=== PATIENT | male | born 1960 | race Caucasian/White ===

== ENCOUNTER → 2017-11-01 12:01 | Outpatient (CLI) | payer OTHER, SELFPAY ==
--- NOTE | 2017-11-01 | DI.RAD.S_ITS ---
PROCEDURE: XR HAND LT MIN 3V INDICATIONS: 57 year-old male with left hand and wrist injury. TECHNIQUE: 3 views of the hand(s) acquired. COMPARISON: [facility], CR, XR WRIST LT MIN 3V, 11/01/2017, 12:09. FINDINGS: Bones: No fractures or dislocations. Carpal bones are normally aligned. No suspicious bony lesions. Soft tissues: No suspicious soft tissue calcifications. IMPRESSION: No acute bony injuries of the left hand. Dictated by: Giovanny Payne M.D. on 11/01/2017 at 13:23 Approved by: Giovanny Payne M.D. on 11/01/2017 at 13:24
--- NOTE | 2017-11-01 | DI.RAD.S_ITS ---
PROCEDURE: XR WRIST LT MIN 3V INDICATIONS: 57 year-old male with left hand and wrist injury. TECHNIQUE: 4 views of the wrist were acquired. COMPARISON: None. FINDINGS: Bones: No fractures or dislocations. No suspicious bony lesions. Scaphoid view: Scaphoid appears intact. Soft tissues: No suspicious soft tissue calcifications. IMPRESSION: No acute bony injuries of the left wrist. Dictated by: Giovanny Payne M.D. on 11/01/2017 at 13:22 Approved by: Giovanny Payne M.D. on 11/01/2017 at 13:23
== END ==
PROVIDERS: Visit Provider Family Medicine
DX: S69.92XA Unspecified injury of left wrist, hand and finger(s), initial encounter (principal)
CPT/HCPCS: 73110; 73130; 73630

== ENCOUNTER → 2020-06-06 10:58 | Outpatient (ROUT) | payer OTHER, SELFPAY ==
[2020-06-06 11:54] LABS: COVID19 -Nasal RAPID Negative (Negative)
== END ==
PROVIDERS: Visit Provider Family Medicine
DX: Z20.822 Contact with and (suspected) exposure to COVID-19 (principal)
CPT/HCPCS: 87635

== ENCOUNTER 2021-05-22 15:31 | Emergency (ER) | payer OTHER, SELFPAY ==
[2021-05-22] VITALS (17 sets, daily range): BP systolic 127–149; BP diastolic 75–91; PULSE 74–88; RESP 13–23; TEMP 37.1; O2SAT 93–98; BMI 33.4
--- NOTE | 2021-05-22 15:53 | DI.RAD.S_ITS ---
PROCEDURE: XR CHEST 1V INDICATIONS: chest pain TECHNIQUE: One view of the chest was acquired. COMPARISON: [facility], , CHEST 1 VIEW, 11/02/2013, 7:30. FINDINGS: Surgical changes and devices: None. Lungs and pleura: Lungs are clear. No pleural effusions or pneumothorax. Mediastinum: Mediastinal contours appear normal. Heart size is normal. Bones and chest wall: No suspicious bony lesions. Overlying soft tissues appear unremarkable. IMPRESSION: No acute cardiopulmonary abnormality. Dictated by: Wayne Patiño M.D. on 05/22/2021 at 16:24 Approved by: Wayne Patiño M.D. on 05/22/2021 at 16:24
[2021-05-22 16:05] LABS: Add Manual Diff / Slide Review NO; Basophils Absolute Auto 100 /uL (0-100); Basophils Percent Auto 0.7 % (0-2); Eosinophils Absolute Auto 200 /uL (0-450); Eosinophils Percent Auto 1.6 % (2-4); Hemoglobin 15.2 g/dL (13.5-17.5); Lymphocytes Absolute Auto 1900 /uL (1100-4500); Lymphocytes Percent Auto 19.9 % (25-40); Mean Corpuscular HGB Conc 35.5 % (30-36); Mean Corpuscular Hemoglobin 32.9 PG (26-34); Mean Corpuscular Volume 92.8 fL (80-100); Monocytes Absolute Auto 700 /uL (0-900); Monocytes Percent Auto 7.2 % (3-14); Neutrophils Absolute Auto 6700 /uL (1500-7000); Neutrophils Percent Auto 70.6 % (50-75); Platelet Count 291 X10^3/uL (150-400); Red Blood Cell Count 4.63 X10^6/uL (4.5-5.9); Red Cell Distribution Width 12.4 % (11.6-14.8); White Blood Cell Count 9.5 X10^3/uL (4.5-11.0)
[2021-05-22 16:07] LABS: Prothrombin Time 11.5 SECONDS (10.1-12.7)
[2021-05-22 16:10] LABS: PTT Partial Thromboplastin Tim 41 SECONDS (26.4-36.2)
[2021-05-22 16:16] LABS: Alanine Aminotransferase 24 IU/L (<50); Albumin 4.8 g/dL (3.5-5.0); Albumin Globulin Ratio 1.5 (1.0-2.8); Alkaline Phosphatase 89 U/L (38-126); Aspartate Aminotransferase 28 IU/L (17-59); Bilirubin Total 0.4 mg/dL (0.2-1.3); Blood Urea Nitrogen 20 mg/dL (9-20); Calcium 9.9 mg/dL (8.4-10.2); Carbon Dioxide 25 mmol/L (22-32); Chloride 107 mmol/L (98-107); Creatine Kinase 258 U/L (55-170); Estimated Glomerular Filt Rate > 60.0 mL/min (>60); Globulin 3.3 g/dL (1.7-4.1); Glucose 104 mg/dL (80-110); HEMOLYSIS < 15 (0-50); Lipase 114 U/L (23-300); Potassium 4.6 mmol/L (3.4-5.1); Sodium 140 mmol/L (137-145); Total Protein 8.1 g/dL (6.3-8.2)
--- NOTE | 2021-05-22 16:17 | ED.CHESTPAIN ---
HPI - Chest Pain General Chief Complaint: Chest Pain Stated Complaint: CHEST PAIN Time Seen by Provider: 05/22/21 16:15 Source: patient Mode of arrival: Ambulatory Limitations: no limitations Limitations: no limitations History of Present Illness HPI narrative: This is a 60-year-old male comes in with complaint of chest pressure with exertion. Patient states if he goes up steps or exerts himself he gets central chest pressure. He does not get shortness of breath, no syncope or lightheadedness. No nausea or vomiting. He does sometimes get diaphoretic with these episodes. Just been going on for the last for 5 days. He was not having any symptoms before. If he is resting or sitting he does not get symptoms he had stents for a STEMI in 2013 and had not been having similar symptoms since then. He takes a full-dose aspirin daily and typically more for back pain. He has a history of hypertension, dyslipidemia is on simvastatin, metoprolol and lisinopril. No tobacco, he drinks 4-5 alcoholic drinks daily. No illicit. His primary care is through [facility] and is Dr. Benoit. He does not follow with cardiology regularly. Related Data Allergies Allergy/AdvReac Type Severity Reaction Status Date / Time Penicillins Allergy Verified 05/22/21 15:53 Review of Systems Review of Systems ROS Unobtainable: All systems reviewed & are unremarkable except as noted in HPI and below Patient History Social History Smoking Status: Never smoker Smoking Status: Never smoker alcohol intake frequency: 3 or more drinks per day Substance Use Type: does not use Exam Narrative Exam Narrative: GENERAL: Alert and oriented x three, male is in mild distress. HEENT: Head normocephalic, atraumatic, EOMI, pupils reactive, face symmetric, moist mucous membranes NECK: Supple, full range of motion CARDIOVASCULAR: Regular rate and rhythm without murmurs, rubs or gallops. RESPIRATORY: Breath sounds equal bilaterally, no wheezes rales or rhonchi. ABDOMEN: Soft, nontender. Normoactive bowel sounds all 4 quadrants. No guarding or rebound, rigidity, no mass : No CVA tenderness EXTREMITIES: Normal range of motion, no edema. Neurovascularly intact NEUROLOGICAL: Cranial nerves II through XII grossly intact. Moving all extremities SKIN: Warm, dry, no petechiae, no rashes or lesions. Initial Vital Signs Initial Vital Signs: Vital Signs Pulse Rate 86 05/22/21 15:44 Respiratory Rate 16 05/22/21 15:44 Blood Pressure 142/90 H 05/22/21 15:44 Pulse Oximetry 97 05/22/21 15:44 Scores HEART Score Heart Score history: Highly Suspicious Heart Score EKG: Non-Specific repolarization disturbance Heart Score Age: 45-64 years old Heart Score risk factors: > 3 risk factors or hx of atherosclerotic disease Heart Score troponin: < or = to normal limit Heart Score Total: 6 Course Orders Ordered: ED Orders 05/22/21 15:43 EKG-12 Lead Stat 05/22/21 15:45 BNP [NT-proBNP (BNP-Adult 18+)] Stat Complete Blood Count AUTO DIFF Stat Comprehensive Metabolic Panel Stat Lipase Stat Magnesium Stat Partial Thromboplastin Time Stat Prothrombin Time INR Stat Troponin & CK Cardiac Panel Stat 05/22/21 15:53 XR chest 1V Stat 05/22/21 16:31 COVID19 - ADMIT ([employer]ATION [employer] swab/PCR) Stat 05/22/21 18:05 Trop I [Troponin I] Stat Reevaluation(s) Reevaluation #1: Patient is covid positive. Patient was updated. He continues to be asymptomatic with no chest pain. Reevaluation #2: Discussed cardiology's recommendations and that I would like patient to stay overnight for serial troponins and echo in the morning. Patient is aware that I am concerned that this is cardiac in nature and that his COVID infection is not the source of his exertional chest pain. Patient acknowledges risks versus benefits but would like to return home. We discussed Against Medical Advice but patient can return at any time. Patient is going to try to get a pulse oximeter. He is also going to try to contact his primary care to have an echo as an outpatient although this may be difficult secondary to his current infection. Consultations Consultation #1: Dr. Crouch, we discussed that patient is COVID positive today but his symptoms have really 0 been that of exertional chest pain and seem quite symptomatic of potential cardiac causes. He recommends serial enzymes, echo and if there are no changes discharge home but to increase his metoprolol. He would not stress test the patient with his positive COVID infection. If patient had enzyme changes or changes on his echo recommends recontact to cardiology. Vital Signs Vital signs: Vital Signs - 8 hr 12/20/21 15:44 05/22/21 15:45 05/22/21 15:53 Temperature 98.7 F Pulse Rate 86 85 83 Respiratory Rate 16 22 14 Blood Pressure 142/90 H 142/90 H Pulse Oximetry 97 98 97 05/22/21 16:00 05/22/21 16:15 05/22/21 16:30 Temperature Pulse Rate 82 78 80 Respiratory Rate 18 17 19 Blood Pressure 140/82 142/85 H Pulse Oximetry 98 97 98 05/22/21 16:45 05/22/21 17:00 05/22/21 17:15 Temperature Pulse Rate 86 77 88 Respiratory Rate 20 20 23 Blood Pressure 141/87 H Pulse Oximetry 98 98 98 05/22/21 17:30 05/22/21 17:45 05/22/21 18:00 Temperature Pulse Rate 78 75 76 Respiratory Rate 14 18 14 Blood Pressure 149/91 H 137/87 Pulse Oximetry 97 97 95 05/22/21 18:15 05/22/21 18:30 05/22/21 18:45 Temperature Pulse Rate 77 74 75 Respiratory Rate 19 15 13 Blood Pressure 127/77 Pulse Oximetry 96 96 98 05/22/21 19:00 05/22/21 19:15 Temperature Pulse Rate 74 78 Respiratory Rate 15 17 Blood Pressure 138/75 Pulse Oximetry 93 96 MDM - Chest Pain Lab Data Result diagrams: 05/22/21 15:45 05/22/21 15:45 Labs: Lab Results 05/22/21 05/22/21 05/22/21 Range/Units 15:45 15:45 15:45 WBC 9.5 (4.5-11.0) X10^3/uL RBC 4.63 (4.5-5.9) X10^6/uL Hgb 15.2 (13.5-17.5) g/dL Hct 43.0 (41-53) % MCV 92.8 (80-100) fL MCH 32.9 (26-34) PG MCHC 35.5 (30-36) % RDW 12.4 (11.6-14.8) % Plt Count 291 (150-400) X10^3/uL Neut % (Auto) 70.6 (50-75) % Lymph % (Auto) 19.9 L (25-40) % [facility] % (Auto) 7.2 (3-14) % Eos % (Auto) 1.6 L (2-4) % Baso % (Auto) 0.7 (0-2) % Neut # (Auto) 6700 (0759-6844) /uL Lymph # (Auto) 1900 (3465-1948) /uL [facility] # (Auto) 700 (0-900) /uL Eos # (Auto) 200 (0-450) /uL Baso # (Auto) 100 (0-100) /uL PT 11.5 (10.1-12.7) SECONDS INR 1.0 (0.9-1.3) APTT 41 H (26.4-36.2) SECONDS Sodium 140 (137-145) mmol/L Potassium 4.6 (3.4-5.1) mmol/L Chloride 107 (98-107) mmol/L Carbon Dioxide 25 (22-32) mmol/L BUN 20 (9-20) mg/dL Creatinine 1.00 (0.66-1.25) mg/dL Estimated GFR > 60.0 (>60) mL/min BUN/Creatinine Ratio 20.0 (6-22) Glucose 104 (80-110) mg/dL Calcium 9.9 (8.4-10.2) mg/dL Magnesium 2.0 (1.6-2.3) mg/dL Total Bilirubin 0.4 (0.2-1.3) mg/dL AST 28 (17-59) IU/L ALT 24 (<50) IU/L Alkaline Phosphatase 89 (38-126) U/L Total Creatine Kinase 258 H (55-170) U/L CK-MB (CK-2) 4.53 H (<2.37) ng/mL CK-MB (CK-2) Rel Index 1.8 (1.5-5.0) % Troponin I < 0.012 (0.01-0.034) ng/mL NT-Pro-B Natriuret Pep (<125) pg/mL Total Protein 8.1 (6.3-8.2) g/dL Albumin 4.8 (3.5-5.0) g/dL Globulin 3.3 (1.7-4.1) g/dL Albumin/Globulin Ratio 1.5 (1.0-2.8) Lipase 114 (23-300) U/L SARS-CoV-2 (PCR) (Negative) 05/22/21 05/22/21 05/22/21 Range/Units 15:45 16:31 18:05 WBC (4.5-11.0) X10^3/uL RBC (4.5-5.9) X10^6/uL Hgb (13.5-17.5) g/dL Hct (41-53) % MCV (80-100) fL MCH (26-34) PG MCHC (30-36) % RDW (11.6-14.8) % Plt Count (150-400) X10^3/uL Neut % (Auto) (50-75) % Lymph % (Auto) (25-40) % [facility] % (Auto) (3-14) % Eos % (Auto) (2-4) % Baso % (Auto) (0-2) % Neut # (Auto) (2887-9930) /uL Lymph # (Auto) (9459-8182) /uL [facility] [place] # (Auto) (0-900) /uL Eos # (Auto) (0-450) /uL Baso # (Auto) (0-100) /uL PT (10.1-12.7) SECONDS INR (0.9-1.3) APTT (26.4-36.2) SECONDS Sodium (137-145) mmol/L Potassium (3.4-5.1) mmol/L Chloride (98-107) mmol/L Carbon Dioxide (22-32) mmol/L BUN (9-20) mg/dL Creatinine (0.66-1.25) mg/dL Estimated GFR (>60) mL/min BUN/Creatinine Ratio (6-22) Glucose (80-110) mg/dL Calcium (8.4-10.2) mg/dL Magnesium (1.6-2.3) mg/dL Total Bilirubin (0.2-1.3) mg/dL AST (17-59) IU/L ALT (<50) IU/L Alkaline Phosphatase (38-126) U/L Total Creatine Kinase (55-170) U/L CK-MB (CK-2) (<2.37) ng/mL CK-MB (CK-2) Rel Index (1.5-5.0) % Troponin I < 0.012 (0.01-0.034) ng/mL NT-Pro-B Natriuret Pep 146 H (<125) pg/mL Total Protein (6.3-8.2) g/dL Albumin (3.5-5.0) g/dL Globulin (1.7-4.1) g/dL Albumin/Globulin Ratio (1.0-2.8) Lipase (23-300) U/L SARS-CoV-2 (PCR) Positive H (Negative) Imaging Data Chest x-ray: Radiologist's Impression: [address] [address] XRay Report Signed Patient: Ryan Mc MR#: [id number] : 1960 Acct:[id number] Age/Sex: 60 / M Date of Service: 05/22/21 Loc: ED Accession Number: [id number] ?? Procedure: XR chest 1V Ordering Provider: Carolynn Guerrero D.O. PROCEDURE:? XR CHEST 1V ? INDICATIONS:? chest pain ? TECHNIQUE:? One view of the chest was acquired.? ? COMPARISON:? [facility], , CHEST 1 VIEW, 11/02/2013, 7:30. ? FINDINGS:? ? Surgical changes and devices:? None.? ? Lungs and pleura:? Lungs are clear.? No pleural effusions or pneumothorax.? ? Mediastinum:? Mediastinal contours appear normal.? Heart size is normal.? ? Bones and chest wall:? No suspicious bony lesions.? Overlying soft tissues appear unremarkable.? ? IMPRESSION:? No acute cardiopulmonary abnormality. ? ? Dictated by: Wayne Patiño M.D. on 05/22/2021 at 16:24 ? ? Approved by: Wayne Patiño M.D. on 05/22/2021 at 16:24?? ECG Data Attestation: I personally reviewed and interpreted this ECG as follows: Interpretation: Sinus rhythm occasional PVCs. Rate 85 ME 162 QRS [address] QTC [address] No acute ST elevation depression appreciated. Patient has prior EKG from 11/02/2013 which showed a STEMI at that time. Patient's EKG from 01/14/2010 which is the next prior appears similar to today's. MDM Narrative Medical decision making narrative: This is a 60-year-old male with chest pain. Patient has exertional chest pain. He has history cardiac stents he also has tested positive for COVID but his symptoms seem more consistent with cardiac chest pain. Patient's vitals are appropriate he has not been hypoxic. He does not have pneumonia on chest x-ray. Patient's repeat troponin is negative. Discussed with Cardiology. At this time they would not stress test the patient secondary to his COVID infection but would recommend serial troponins, observation an echo in the morning. If this was stable with no changes they would recommend doubling his metoprolol and following up closely with Cardiology. Discussed with patient he does not wish to stay he does understand the risks and benefits and that I am very concerned that this may actually be stable angina and not secondary to his COVID infection. Patient does have a primary care he is willing to contact them in the morning to try to obtain an echo although we discussed that it would likely be delayed secondary to his infection he may not be able to get it set up as an outpatient shortly. We also discussed he may return at any time. Patient is going to try to get a pulse oximeter to be able to monitor that at home. Discharge Plan Departure Patient Disposition: Left Against Medical Advice Clinical Impression: COVID-19 virus infection, Chest pain Instructions: DI for Chest Pain, DI for COVID-19 (Suspected or Confirmed ) Activity Restrictions/Additional Instructions: It is recommended that you stay overnight for serial cardiac enzymes and an echo in the morning. You are positive for COVID infection but do not have any changes on your chest x-ray. My suspicion is that your chest pain may be due to blockage of your heart. I would recommend getting a pulse oximeter and checking your oxygen level at home. If it is less than 90% please return. Continue your home medications as prescribed, the substance addiction coordinator does recommend increasing or doubling your metoprolol dose daily. It is recommended you have an ECHO for ultrasound of your heart call your primary care they can help arrange this as an outpatient. There may be a delay secondary to your COVID infection. You may also call to follow up with Cardiology. Referral is included below. Call for an appointment. You may return at any time for recheck and repeat evaluation. Please return if you are having new chest pain, shortness of breath, lightheadedness or passing out or swelling in her extremities. . *What to do: * per recommendations from the CDC and the [facility] Department of Health * stay home except to get medical care. Restrict activities outside your home, except for getting medical care. Do not go to work, school, or public areas. Avoid using public transportation, ride sharing, or taxis. * separate yourself from other people in your home. * call ahead before visiting your doctor * Wear a face mask * Cover your coughs and sneezes * Clean your hands often * Avoid sharing household items * Clean all high-touch services every day * Monitor your symptoms and seek prompt medical attention if your illness is worsening, particularly with difficulty in breathing. Discussed continuing home isolation * for individuals with symptoms who are confirmed or suspected cases of COVID-19 and are directed to care for themselves at home, discontinue home isolation under the following conditions: 1. At least 72 hours have passed since recovery, defined as resolution of fever without the use of fever reducing medications, and improvement in respiratory symptoms (cough, shortness of breath) AND, 2. At least 7 days have passed since symptoms 1st appeared Individuals with laboratory confirmed COVID-19 who have not had any symptoms may discontinue home isolation when at least 7 days have passed since the date of their 1st COVID-19 diagnostic test and have had no subsequent illness Referrals: Randy Crouch MD [Physician] - Stand Alone Forms: Against Medical Advice
[2021-05-22 16:28] LABS: Troponin I < 0.012 ng/mL (0.01-0.034)
[2021-05-22 16:31] LABS: CKMB % Relative Index 1.8 % (1.5-5.0); Creatine Kinase MB 4.53 ng/mL (<2.37)
[2021-05-22 17:20] LABS: NT-proBNP (BNP-Adult 18+) 146 pg/mL (<125)
[2021-05-22 17:23] LABS: COVID19 - ADMIT (NP swab/PCR) POSITIVE (Negative)
[2021-05-22 18:44] LABS: Troponin I < 0.012 ng/mL (0.01-0.034)
== END 2021-05-22 19:35 | disposition left against medical advice (07) ==
PROVIDERS: Emergency Provider Emergency Medicine
DX: U07.1 COVID-19 (principal); R07.9 Chest pain, unspecified; Z53.29 Procedure and treatment not carried out because of patient's decision for other reasons
CPT/HCPCS: 36415; 71045; 80053; 82550; 82553; 83690; 83735; 83880; 84484; 85025; 85610; 85730; 87635; 93005; 99284; C9803

== ENCOUNTER → 2021-09-29 10:22 | Outpatient (ROUT) | payer OTHER, SELFPAY ==
[2021-09-29 11:01] LABS: COVID19 -Nasal RAPID POSITIVE (Negative)
== END ==
PROVIDERS: Visit Provider Family Medicine
DX: U07.1 COVID-19 (principal); Z20.822 Contact with and (suspected) exposure to COVID-19
CPT/HCPCS: 87635

== ENCOUNTER 2022-09-09 09:52 | Emergency (ER) | payer SELFPAY ==
[2022-09-09] VITALS (13 sets, daily range): BP systolic 142–174; BP diastolic 84–114; PULSE 92–118; RESP 16–26; TEMP 37.1; O2SAT 94–98
--- NOTE | 2022-09-09 09:59 | DI.RAD.S_ITS ---
PROCEDURE: XR CHEST 1V INDICATIONS: chest pain TECHNIQUE: One view of the chest was acquired. COMPARISON: [facility], CR, XR CHEST 1V, 05/22/2021, 16:06. FINDINGS: Surgical changes and devices: Overlying EKG wires Lungs and pleura: Lungs are clear. No pleural effusions or pneumothorax. Mediastinum: Mediastinal contours appear normal. Heart size is normal. Bones and chest wall: No suspicious bony lesions. Remote right-sided rib fractures. Overlying soft tissues appear unremarkable. IMPRESSION: No evidence of an acute cardiopulmonary abnormality. Dictated by: Twan Cruz D.O. on 09/09/2022 at 9:55 Approved by: Twan Cruz D.O. on 09/09/2022 at 9:57
[2022-09-09 10:10] LABS: Add Manual Diff / Slide Review NO; Basophils Absolute Auto 100 /uL (0-100); Basophils Percent Auto 1.1 % (0-2); Eosinophils Absolute Auto 200 /uL (0-450); Eosinophils Percent Auto 1.9 % (2-4); Hemoglobin 16.6 g/dL (13.5-17.5); Lymphocytes Absolute Auto 2500 /uL (1100-4500); Lymphocytes Percent Auto 25.8 % (25-40); Mean Corpuscular HGB Conc 35.3 % (30-36); Mean Corpuscular Hemoglobin 32.7 PG (26-34); Mean Corpuscular Volume 92.5 fL (80-100); Monocytes Absolute Auto 700 /uL (0-900); Monocytes Percent Auto 7.7 % (3-14); Neutrophils Absolute Auto 6100 /uL (1500-7000); Neutrophils Percent Auto 63.5 % (50-75); Platelet Count 342 X10^3/uL (150-400); Red Blood Cell Count 5.08 X10^6/uL (4.5-5.9); White Blood Cell Count 9.5 X10^3/uL (4.5-11.0)
[2022-09-09 10:11] LABS: Prothrombin Time 11.1 SECONDS (10.1-12.7)
[2022-09-09 10:13] LABS: PTT Partial Thromboplastin Tim 35 SECONDS (26-36)
[2022-09-09 10:15] LABS: Alanine Aminotransferase 53 IU/L (<50); Albumin 4.4 g/dL (3.5-5.0); Albumin Globulin Ratio 1.1 (1.0-2.8); Alkaline Phosphatase 140 U/L (38-126); Aspartate Aminotransferase 40 IU/L (17-59); BUN Creatinine Ratio 10.5 (6-22); Bilirubin Total 0.6 mg/dL (0.2-1.3); Blood Urea Nitrogen 8 mg/dL (9-20); Carbon Dioxide 22 mmol/L (22-32); Chloride 101 mmol/L (98-107); Creatine Kinase 114 U/L (55-170); Estimated Glomerular Filt Rate > 60 mL/min (>60); Globulin 4.1 g/dL (1.7-4.1); Glucose 139 mg/dL (80-110); Lipase 105 U/L (23-300); Magnesium 2.1 mg/dL (1.6-2.3); Potassium 4.5 mmol/L (3.4-5.1); Sodium 133 mmol/L (137-145); Total Protein 8.5 g/dL (6.3-8.2)
--- NOTE | 2022-09-09 10:18 | ED_ITS ---
HPI - Chest Pain General Chief Complaint: Chest Pain Stated Complaint: chest pain 01/10 Time Seen by Provider: 09/09/22 10:18 Source: EMS Mode of arrival: EMS Limitations: no limitations History of Present Illness HPI narrative: This is a 61-year-old male who presents with complaint of chest pain that started this morning when he got out of bed. Patient states he was not appreciate any while he was lying in bed when he got up and started moving around he had some left substernal pain without radiation felt cramps lasted about a minute resolved and then returned 2 more times with about a couple minutes in between lasting only a minute each time. Took 1 nitro sublingual which improved his symptoms or he states they at least went away. He denies any shortness of breath. Denies any lightheadedness or sensation like he is going to pass out. He is had a cough that has been productive with clear sputum for a couple weeks. He denies any diaphoresis. No orthopnea. No nausea, no vomiting, no diaphoresis. No diarrhea, no constipation, no dysuria urgency or frequency or swelling of his extremities. Patient notes he had episode once before several years ago used sublingual nitro and it resolved. Patient notes he was let go at work at the [employer], lost his insurance and primary care Dr. Benoit at the [employer] and his home medications ran out about a week ago. Patient states he has had a cardiac stent around 2015, he is normally on aspirin medication for hypertension, dyslipidemia. He states he thinks he has an allergy to penicillin. No tobacco, he states drinks most evening 7-8 beers, no illicit. He denies any withdrawal symptoms in the morning or eye open nurse. He does not follow with cardiology regularly, Dr. Benoit with his primary care at the [employer] but since he has been lack of work he does not have one. Related Data Home Medications Medication Instructions Recorded Confirmed atorvastatin 10 mg tablet 10 mg PO DAILY 09/09/22 09/09/22 isosorbide mononitrate 30 mg 30 mg PO DAILY 09/09/22 09/09/22 tablet,extended release 24 hr lisinopril 5 mg tablet 5 mg PO DAILY 09/09/22 09/09/22 metoprolol succinate 50 mg 50 mg PO DAILY 09/09/22 09/09/22 tablet,extended release 24 hr Previous Rx's Medication Instructions Recorded atorvastatin 10 mg tablet 10 mg PO BEDTIME #30 tabs 09/09/22 isosorbide mononitrate 30 mg 30 mg PO DAILY #30 tabs 09/09/22 tablet,extended release 24 hr lisinopril 5 mg tablet 5 mg PO DAILY #30 tabs 09/09/22 metoprolol succinate 50 mg capsule 50 mg PO DAILY #30 ea 09/09/22 sprinkle, ext. release 24 hr (Kapspargo Sprinkle) nitroglycerin 0.4 mg sublingual 0.4 mg sublingual Q5M PRN chest 09/09/22 tablet pain #10 tabs Allergies Allergy/AdvReac Type Severity Reaction Status Date / Time Penicillins Allergy Verified 09/09/22 10:30 Review of Systems Review of Systems ROS Unobtainable: All systems reviewed & are unremarkable except as noted in HPI and below Patient History Social History Smoking Status: Never smoker Smoking Status: Never smoker alcohol intake frequency: 3 or more drinks per day Alcohol type: beer Substance Use Type: does not use Exam Narrative Exam Narrative: GENERAL: Alert and oriented x three, male in mild distress. HEENT: Head normocephalic, atraumatic, EOMI, pupils reactive, face symmetric, moist mucous membranes NECK: Supple, full range of motion CARDIOVASCULAR: Tachycardic but Regular rate and rhythm without murmurs, rubs or gallops. No JVD. No swelling bilateral lower extremities. RESPIRATORY: Breath sounds equal bilaterally, no wheezes rales or rhonchi. no tachypnea or accessory muscle use. Speaks in full sentences. ABDOMEN: Soft, nontender. Normoactive bowel sounds all 4 quadrants. No guarding or rebound, rigidity, no mass : No CVA tenderness EXTREMITIES: Normal range of motion, no clubbing or edema. Lower extremities are equal in size bilaterally. Neurovascularly intact NEUROLOGICAL: Cranial nerves II through XII grossly intact. Moving all extremities SKIN: Warm, dry, no petechiae, no rashes or lesions. Initial Vital Signs Initial Vital Signs: Vital Signs Pulse Rate 116 H 09/09/22 09:57 Respiratory Rate 25 H 09/09/22 09:57 Pulse Oximetry 97 09/09/22 09:57 Course Orders Ordered: ED Orders 09/09/22 09:55 BNP [NT-proBNP (BNP-Adult 18+)] Stat Complete Blood Count AUTO DIFF Stat Comprehensive Metabolic Panel Stat D Dimer Stat Lipase Stat Magnesium Stat PTT Partial Thromboplastin Jamar Stat Prothrombin Time INR Stat Troponin & CK Cardiac Panel Stat 09/09/22 09:59 XR chest 1V Stat EKG-12 Lead Stat 09/09/22 10:00 Covid-19 + FLU A/B + RSV - PCR Stat 09/09/22 10:20 Trop I [Troponin I] Stat 09/09/22 11:11 Consult to [facility] [employer] Representative Stat Discontinued Medications Aspirin (Aspirin 81 Mg Chew Tab) 324 mg PO NOW ONE Stop: 09/09/22 10:00 Last Admin: 09/09/22 10:08 Dose: Not Given Documented By: MARVA Metoprolol Succinate (Metoprolol Er 50 Mg Tablet) 50 mg PO NOW ONE Stop: 09/09/22 10:31 Last Admin: 09/09/22 10:39 Dose: 50 mg Documented By: LANA Vital Signs Vital signs: Vital Signs - 8 hr 09/09/22 10:01 09/09/22 09:57 09/09/22 09:58 Temperature 98.7 F Pulse Rate 115 H 116 H 116 H Respiratory Rate 22 25 H 23 Blood Pressure 160/103 H Pulse Oximetry 96 97 96 Oxygen Delivery Method Room Air 09/09/22 09:58 09/09/22 10:00 09/09/22 10:00 Temperature Pulse Rate 114 H Respiratory Rate 18 Blood Pressure 174/113 H 160/103 H Pulse Oximetry 96 Oxygen Delivery Method 09/09/22 10:30 09/09/22 10:30 09/09/22 10:39 Temperature Pulse Rate 118 H 112 H Respiratory Rate 19 Blood Pressure 169/114 H 169/114 H Pulse Oximetry 95 Oxygen Delivery Method 09/09/22 11:18 09/09/22 11:00 09/09/22 11:00 Temperature Pulse Rate 111 H 112 H Respiratory Rate 17 Blood Pressure 152/100 H 152/100 H Pulse Oximetry 94 Oxygen Delivery Method 09/09/22 11:30 09/09/22 11:30 09/09/22 12:00 Temperature Pulse Rate 107 H Respiratory Rate 16 Blood Pressure 153/84 H 157/102 H Pulse Oximetry 95 Oxygen Delivery Method Room Air 09/09/22 12:00 09/09/22 12:30 09/09/22 12:31 Temperature Pulse Rate 99 H 98 H Respiratory Rate 25 H 26 H Blood Pressure 150/95 H Pulse Oximetry 95 97 Oxygen Delivery Method 09/09/22 12:31 09/09/22 13:00 09/09/22 13:00 Temperature Pulse Rate 97 H 92 H Respiratory Rate 18 22 Blood Pressure 142/97 H Pulse Oximetry 98 97 Oxygen Delivery Method MDM - Chest Pain Lab Data 09/09/22 09:55 09/09/22 09:55 Labs: Lab Results 09/09/22 09/09/22 09/09/22 Range/Units 09:55 09:55 09:55 WBC 9.5 (4.5-11.0) X10^3/uL RBC 5.08 (4.5-5.9) X10^6/uL Hgb 16.6 (13.5-17.5) g/dL Hct 47.0 (41-53) % MCV 92.5 (80-100) fL MCH 32.7 (26-34) PG MCHC 35.3 (30-36) % RDW 13.0 (11.6-14.8) % Plt Count 342 (150-400) X10^3/uL Neut % (Auto) 63.5 (50-75) % Lymph % (Auto) 25.8 (25-40) % [place] % (Auto) 7.7 (3-14) % Eos % (Auto) 1.9 L (2-4) % Baso % (Auto) 1.1 (0-2) % Neut # (Auto) 6100 (0602-0593) /uL Lymph # (Auto) 2500 (5542-7155) /uL [place] # (Auto) 700 (0-900) /uL Eos # (Auto) 200 (0-450) /uL Baso # (Auto) 100 (0-100) /uL PT 11.1 (10.1-12.7) SECONDS INR 1.0 (0.9-1.3) APTT 35 (26-36) SECONDS D-Dimer (<500) ng/ml Sodium 133 L (137-145) mmol/L Potassium 4.5 (3.4-5.1) mmol/L Chloride 101 (98-107) mmol/L Carbon Dioxide 22 (22-32) mmol/L BUN 8 L (9-20) mg/dL Creatinine 0.76 (0.66-1.25) mg/dL Estimated GFR > 60 (>60) mL/min BUN/Creatinine Ratio 10.5 (6-22) Glucose 139 H (80-110) mg/dL Calcium 9.0 (8.4-10.2) mg/dL Magnesium 2.1 (1.6-2.3) mg/dL Total Bilirubin 0.6 (0.2-1.3) mg/dL AST 40 (17-59) IU/L ALT 53 H (<50) IU/L Alkaline Phosphatase 140 H (38-126) U/L Total Creatine Kinase 114 (55-170) U/L CK-MB (CK-2) 2.04 (<2.37) ng/mL CK-MB (CK-2) Rel Index 1.8 (1.5-5.0) % Troponin I < 0.012 (0.01-0.034) ng/mL NT-Pro-B Natriuret Pep (<125) pg/mL Total Protein 8.5 H (6.3-8.2) g/dL Albumin 4.4 (3.5-5.0) g/dL Globulin 4.1 (1.7-4.1) g/dL Albumin/Globulin Ratio 1.1 (1.0-2.8) Lipase 105 (23-300) U/L SARS-CoV-2 (PCR) (Negative) Influenza A (RT-PCR) (NEGATIVE) Influenza B (RT-PCR) (NEGATIVE) RSV (PCR) (Negative) 09/09/22 09/09/22 09/09/22 Range/Units 09:55 09:55 10:00 WBC (4.5-11.0) X10^3/uL RBC (4.5-5.9) X10^6/uL Hgb (13.5-17.5) g/dL Hct (41-53) % MCV (80-100) fL MCH (26-34) PG MCHC (30-36) % RDW (11.6-14.8) % Plt Count (150-400) X10^3/uL Neut % (Auto) (50-75) % Lymph % (Auto) (25-40) % [place] % (Auto) (3-14) % Eos % (Auto) (2-4) % Baso % (Auto) (0-2) % Neut # (Auto) (3074-9066) /uL Lymph # (Auto) (1973-4152) /uL [place] # (Auto) (0-900) /uL Eos # (Auto) (0-450) /uL Baso # (Auto) (0-100) /uL PT (10.1-12.7) SECONDS INR (0.9-1.3) APTT (26-36) SECONDS D-Dimer 289 (<500) ng/ml Sodium (137-145) mmol/L Potassium (3.4-5.1) mmol/L Chloride (98-107) mmol/L Carbon Dioxide (22-32) mmol/L BUN (9-20) mg/dL Creatinine (0.66-1.25) mg/dL Estimated GFR (>60) mL/min BUN/Creatinine Ratio (6-22) Glucose (80-110) mg/dL Calcium (8.4-10.2) mg/dL Magnesium (1.6-2.3) mg/dL Total Bilirubin (0.2-1.3) mg/dL AST (17-59) IU/L ALT (<50) IU/L Alkaline Phosphatase (38-126) U/L Total Creatine Kinase (55-170) U/L CK-MB (CK-2) (<2.37) ng/mL CK-MB (CK-2) Rel Index (1.5-5.0) % Troponin I (0.01-0.034) ng/mL NT-Pro-B Natriuret Pep 78 (<125) pg/mL Total Protein (6.3-8.2) g/dL Albumin (3.5-5.0) g/dL Globulin (1.7-4.1) g/dL Albumin/Globulin Ratio (1.0-2.8) Lipase (23-300) U/L SARS-CoV-2 (PCR) Negative (Negative) Influenza A (RT-PCR) Flu a negative (NEGATIVE) Influenza B (RT-PCR) Flu b negative (NEGATIVE) RSV (PCR) Negative (Negative) 09/09/22 Range/Units 10:20 WBC (4.5-11.0) X10^3/uL RBC (4.5-5.9) X10^6/uL Hgb (13.5-17.5) g/dL Hct (41-53) % MCV (80-100) fL MCH (26-34) PG MCHC (30-36) % RDW (11.6-14.8) % Plt Count (150-400) X10^3/uL Neut % (Auto) (50-75) % Lymph % (Auto) (25-40) % [place] % (Auto) (3-14) % Eos % (Auto) (2-4) % Baso % (Auto) (0-2) % Neut # (Auto) (7709-7058) /uL Lymph # (Auto) (1186-6241) /uL [place] # (Auto) (0-900) /uL Eos # (Auto) (0-450) /uL Baso # (Auto) (0-100) /uL PT (10.1-12.7) SECONDS INR (0.9-1.3) APTT (26-36) SECONDS D-Dimer (<500) ng/ml Sodium (137-145) mmol/L Potassium (3.4-5.1) mmol/L Chloride (98-107) mmol/L Carbon Dioxide (22-32) mmol/L BUN (9-20) mg/dL Creatinine (0.66-1.25) mg/dL Estimated GFR (>60) mL/min BUN/Creatinine Ratio (6-22) Glucose (80-110) mg/dL Calcium (8.4-10.2) mg/dL Magnesium (1.6-2.3) mg/dL Total Bilirubin (0.2-1.3) mg/dL AST (17-59) IU/L ALT (<50) IU/L Alkaline Phosphatase (38-126) U/L Total Creatine Kinase (55-170) U/L CK-MB (CK-2) (<2.37) ng/mL CK-MB (CK-2) Rel Index (1.5-5.0) % Troponin I < 0.012 (0.01-0.034) ng/mL NT-Pro-B Natriuret Pep (<125) pg/mL Total Protein (6.3-8.2) g/dL Albumin (3.5-5.0) g/dL Globulin (1.7-4.1) g/dL Albumin/Globulin Ratio (1.0-2.8) Lipase (23-300) U/L SARS-CoV-2 (PCR) (Negative) Influenza A (RT-PCR) (NEGATIVE) Influenza B (RT-PCR) (NEGATIVE) RSV (PCR) (Negative) Imaging Data Chest x-ray: My Impression: Appears similar to prior. Radiologist's Impression: [address] [address] XRay Report Signed Patient: Ryan Mc MR#: [id number] : 1960 Acct:[id number] Age/Sex: 61 / M Date of Service: 09/09/22 Loc: ED Accession Number: [id number] ?? Procedure: XR chest 1V Ordering Provider: Carolynn Guerrero D.O. PROCEDURE:? XR CHEST 1V ? INDICATIONS:? chest pain ? TECHNIQUE:? One view of the chest was acquired.? ? COMPARISON:? [facility], DIONNE, XR CHEST 1V, 05/22/2021, 16:06. ? FINDINGS:? ? Surgical changes and devices:? Overlying EKG wires ? Lungs and pleura:? Lungs are clear.? No pleural effusions or pneumothorax.? ? Mediastinum:? Mediastinal contours appear normal.? Heart size is normal.? ? Bones and chest wall:? No suspicious bony lesions.? Remote right-sided rib fr actures.? Overlying soft tissues appear unremarkable.? ? IMPRESSION:? ? No evidence of an acute cardiopulmonary abnormality. ? ? Dictated by: Twan Cruz D.O. on 09/09/2022 at 9:55 ? ? Approved by: Twan Cruz D.O. on 09/09/2022 at 9:57?? ECG Data Attestation: I personally reviewed and interpreted this ECG as follows: Prior ECG tracings: available for review Interpretation: Sinus tachycardia rate of 117 UT 154 QRS 86 and QTC of 446. No acute or dynamic changes noted. Left posterior fascicular block. Patient has prior from 05/22/[address] segments was sinus rhythm with a rate 85 at that time. EKG 2. Shows sinus rhythm rate of 97 UT 170 QRS 84 QTC of 416. EKG appears similar to prior no dynamic changes appreciated. Patient has appears to have more UT depression then elevation in 3 and AVF not as appreciated on 1st EKG but patient was tachycardic and UT intervals are much shorter. [facility] Narrative Medical decision making narrative: This is a 61-year-old male who presents with complaint of chest pain that lasted for about a minute x3 this morning. Patient had 1 nitro sublingual which seemed to resolve his symptoms, he has been taking aspirin daily, on medication for hypertension, dyslipidemia and daily isosorbide mononitrate which he ran out of about a week ago patient has known cardiac disease with a stent in place. Patient is slightly tachycardic on exam as well as telemetry and EKGs, patient does not have any new ST changes on initial EKG. Hypertensive, besides tachycardia no other known risk factors for blood clots he has not had any long distance travel or high-risk family history. I suspect his tachycardia may be related somewhat to alcohol withdrawal as he drinks 7-8 beers nightly and/or withdrawal from his metoprolol as he has been off it for a week. D-dimer was added onto his blood work he is had a CBC, CMP, coags which are negative, troponin initially is negative and was repeated 2 hours from the 1st, BNP is normal. Dimer is negative. ALT is 53 alk-phos is 140, bilirubin and lipase are negative. [facility] respiratory swab for COVID, influenza a and B and RSV is negative. Chest x-ray shows no acute change, old right-sided rib fractures. Troponin EKG were repeated. No major changes. Discussed with patient who would like to return home we will refill all his home medications so he can restart them, going to contribute potential cardiac issues. Patient feels very comfortable this plan. He states he can feel his medications he feels that he can afford to fill these today. Discharge Plan Departure Patient Disposition: Home Clinical Impression: Chest pain Instructions: DI for Chest Pain Activity Restrictions/Additional Instructions: Please call to set up follow-up and to refill your medications. Please restart your medications. You received a dose of your metoprolol today so take your next dose tomorrow. You can start all your other regular medications today. Prescriptions have been sent to [facility] in [place]. Please return for recurrent chest pain shortness of breath, lightheadedness or passing out, new swelling in her extremities nausea or vomiting, sweating or other new or concerning changes Prescriptions: New atorvastatin 10 mg tablet 10 mg PO BEDTIME Qty: 30 0RF isosorbide mononitrate 30 mg tablet extended release 24 hr 30 mg PO DAILY Qty: 30 0RF lisinopril 5 mg tablet 5 mg PO DAILY Qty: 30 0RF Kapspargo Sprinkle 50 mg capsule,sprinkle,ER 24hr 50 mg PO DAILY Qty: 30 0RF nitroglycerin 0.4 mg tablet, sublingual 0.4 mg sublingual Q5M PRN (Reason: chest pain) Qty: 10 0RF Rx Instructions: do not exceed 3 doses per episode Discontinued nitroglycerin 0.4 mg tablet, sublingual 0.4 mg sublingual PRN PRN (Reason: Chest Pain) Patient Comments: PLACE 1 TABLET UNDER THE TONGUE EVERY 5 MINUTES NEEDED FOR CHEST PAIN No Action atorvastatin 10 mg tablet 10 mg PO DAILY isosorbide mononitrate 30 mg tablet extended release 24 hr 30 mg PO DAILY lisinopril 5 mg tablet 5 mg PO DAILY metoprolol succinate 50 mg tablet extended release 24 hr 50 mg PO DAILY Patient Comments: TAKE ONE AND ONE-HALF TABLETS BY MOUTH DAILY Stand Alone Forms: Patient Portal/API
[2022-09-09 10:27] LABS: Troponin I < 0.012 ng/mL (0.01-0.034)
[2022-09-09] MEDS: METOPROLOL ER 50 MG TABLET PO (10:39)
[2022-09-09 10:44] LABS: D Dimer 289 ng/ml (<500)
[2022-09-09 10:47] LABS: COVID-19 CEPHEID 4-PLEX PCR Negative (Negative); Influenza A - CEPHEID Flu A NEGATIVE (NEGATIVE); Influenza B - CEPHEID Flu B NEGATIVE (NEGATIVE); Respiratory Syncytial Virus Negative (Negative)
[2022-09-09 10:56] LABS: NT-proBNP (BNP-Adult 18+) 78 pg/mL (<125)
[2022-09-09 10:57] LABS: CKMB % Relative Index 1.8 % (1.5-5.0); Creatine Kinase MB 2.04 ng/mL (<2.37); HEMOLYSIS 22 (0-50)
[2022-09-09 12:32] LABS: Troponin I < 0.012 ng/mL (0.01-0.034)
--- NOTE | 2022-09-09 12:59 | CM.SWNOTE ---
ED COLOR MATCHER/DCP Note Patient is 61 y/o male who presents to ED via EMS due to concern for chest pains. It is reported by ED provider that patient is in between PCPs and insurance as he has recently lost his job at [employer]. Patient previously had [employer] insurance and was seen by PCP Dr. Nina Benoit. COLOR MATCHER enters room to meet with patient. Patient presents as A/Ox4. Patient endorses that he is planning to move to [place], [place] in [facility] this week to be with family. Patient endorses that he applied for Disability a month ago and his sister is the executor of his estate and assisting him with benefits and insurance. COLOR MATCHER identifies patient's new phone number and sister Kalani's contact information and request registration to add it to patient's EMR. COLOR MATCHER offers to assist patient with establishing care with PCP but patient endorses he will seek assistance from his sister and do so when he is established in [place], [place] COLOR MATCHER discusses apply for state insurance if needed and goes over paperwork provided by registration. COLOR MATCHER shows patient phone number to call to set up state insurance. Patient denies any further needs or assistance from COLOR MATCHER. Per ED provider, patient will be medically clear for d/c and ED provider will provide patient with one month refill of medications. RAMON EspitiaSW
== END 2022-09-09 13:32 | disposition home or self-care (01) ==
PROVIDERS: Emergency Provider Emergency Medicine
DX: R07.9 Chest pain, unspecified (principal); R00.0 Tachycardia, unspecified; Z20.822 Contact with and (suspected) exposure to COVID-19
CPT/HCPCS: 0241U; 36415; 71045; 80053; 82550; 82553; 83690; 83735; 83880; 84484; 85025; 85379; 85610; 85730; 93005; 99284